=== PATIENT | female | born 1960 | race Caucasian/White ===

== ENCOUNTER 2019-07-16 08:39 | Day surgery (SDC) | payer BC ==
[~2019-07-16 08:39] MED LIST: Buffered Lidocaine 1% SYRIN* 1 ML/SYRINGE INTRADERM ONE; Famotidine IV* 10 MG/ML 2 ML (20 mg) IV ONE; Lactated Ringers 1000 ML Bag* 1,000 ML IV SCH; Metoclopramide IV* 5 MG/ML 2 ML VIAL IV SLOW PU ONE
[2019-07-16] MEDS ORDERED: Metoclopramide IV* 5 MG/ML 2 ML VIAL ONE (09:12)
[2019-07-16] MEDS ORDERED: Famotidine IV* 10 MG/ML 2 ML (20 mg) ONE (09:13)
[2019-07-16] MEDS ORDERED: Midazolam* 1 MG/ML 2 ML VIAL (2 MG) ONE (11:09)
[2019-07-16] MEDS ORDERED: fentaNYL* 50 MCG/ML 2 ML VIAL (100 MCG VIAL) ONE ×2 (11:09→14:18)
[2019-07-16] MEDS ORDERED: Bupivacaine 0.25% SDV PF* 10 ML VIAL INJ ONE ×2 (11:56→13:37)
[2019-07-16] MEDS ORDERED: Propofol* 10 MG/ML 20 ML BTL ONE (12:29)
[2019-07-16] MEDS ORDERED: Phenylephrine 40 MCG/ML SYRINGE ONE (12:29)
[2019-07-16] MEDS ORDERED: Ondansetron INJ* 2 MG/ML VIAL ONE ×2 (12:29→12:56)
[2019-07-16] MEDS ORDERED: Lidocaine 2% PF * 5 ML VIAL ONE (12:29)
[2019-07-16] MEDS ORDERED: DiMENhydriNATE IV* 50 MG/ML VIAL IV PUSH PRN (13:06)
[2019-07-16] MEDS ORDERED: Naloxone* 0.4 MG/ML 1 ML VIAL IV PRN (13:06)
[2019-07-16] MEDS: fentaNYL* 50 MCG/ML 2 ML VIAL (100 MCG VIAL) IV PRN ×2 (14:19→15:14)
[2019-07-16] MEDS ORDERED: HYDROcodone/ACETAMIN 5-325 MG* 1 TAB ONE (15:09)
[2019-07-16 16:42] VITALS: BP 122/58
--- NOTE | 2019-07-16 22:00 | OP ---
DATE OF OPERATION: 07/16/19 - [facility] DATE OF : 60 SURGEON: Ross Turner MD BUILDING ESTIMATOR: AMANDA Roper. An chemist assistant was needed for the entirety of the procedure to aid in positioning of the arm and retraction. ANESTHESIOLOGIST: Dr. Cobos. ANESTHESIA: General. PRE-OP DIAGNOSIS: Left severe peripheral ulnar nerve compression. POST-OP DIAGNOSIS: Left severe peripheral ulnar nerve compression. OPERATIVE PROCEDURE: 1. Left ulnar nerve decompression at the wrist. 2. Left ulnar nerve decompression of the elbow with anterior transmuscular transposition. INDICATIONS: Ms. Fine is a 59. The ulnar nerve compression is getting severe. Numbness and tingling is becoming constant. There is weakness in the hand. We talked about her treatment options and she had wanted to proceed with surgery. She understands the risks and benefits including the risk of persistent pain, wound problems, infection, hematoma, neuritis. She wishes to proceed. ESTIMATED BLOOD LOSS: 2 mL. COMPLICATIONS: None. FINDINGS: See above and below. DESCRIPTION OF PROCEDURE: Ms. Fine was seen in the preoperative holding area. The correct site, side, and procedures were identified. We came back to the operating room where the arm was prepped and draped in the usual fashion, and a time-out was performed. The arm was exsanguinated with the Esmarch and the tourniquet was inflated to 250 mmHg. I went ahead and made a longitudinal incision in the proximal palm, this was brought back across the wrist on the ulnar aspect in [place] type fashion. Full thickness flaps were raised off the fascia. The transverse carpal ligament was released. The release was taken down all the way through the palmar fascia distally and proximally. The distal antebrachial fascia was released as well. I then released the fascia overlying the roof of Guyon's canal. This was released through its entirety. Proximally I came and I put an [place] and I released all the fascia overlying the ulnar neurovascular bundle proximal many centimeters up into the distal forearm. Once I had completed the release all the way down through Guyon's canal, I could identify the 2 sensory branches to the motor nerve going down to the hand. I then gently retracted the ulnar nerve ulnarly with the Ragnell retractor and then I released the fascia overlying the hypothenar muscles. The muscles were then released. The subfascial layer was released as well all the way down around the hook of the hamate until the nerve was completely released. We did obtain cautery with the bipolar cautery. Everything was looking good at this point. The release was completed and so we irrigated out the wound and the skin was closed with 4-0 nylon suture. I then abducted and externally rotated the arm. A curvilinear incision was made over the cubital tunnel. Dissection was carried down. She has a larger arm and there was a lot of subcutaneous tissue, took the release all the way down to the fascia overlying the cubital tunnel. The nerve was released just proximal to the Berry's ligament. The release was carried out past the arcade of [place] and down distally. I released the fascia between the 2 heads of the FCU. The muscle was then split and the subfascial layer was released, again many centimeters distal to the elbow. At this point, the nerve had already subluxated up over the medial epicondyle. I then raised the full-thickness flap off the flexor pronator fascia. The medial intermuscular septum was excised. The leading edge of the FCU fascia together with some of the humeral head of the FCU was excised. I performed a neurolysis using a vessel loop for gentle retraction of the nerve. Stepcut fascial flap was raised off the flexor pronator fascia. The intermuscular septi were excised. The nerve was transposed up on to the muscular bed. The 2 fascial flaps were then sewn end- to-end to provide a loosening to keep the nerve in the transposed position. Hemostasis was then obtained with a Bovie. Everything was looking good. The nerve was nicely transposed. There was no kinking of the nerve. We irrigated out the wound. The subcutaneous tissue was reapproximated with 3-0 Vicryl suture, skin was closed with 3-0 Monocryl suture and Steri-Strips. 0.25% Marcaine was infiltrated all about the elbow and the wrist. Wounds were dressed with Xeroform, 4x4s, and ABD at the elbow, sterile Webril and then a long arm splint with a lateral buttress was applied and she was taken to the recovery room in stable condition. [id number]/[facility] #: [id number] ANABELLE
== END 2019-07-16 17:08 | disposition home or self-care (01) ==
LOC: OR 08:39
PROVIDERS: ATTEND Orthopaedic Surgery Hand Surgery
DX: G56.22 Lesion of ulnar nerve, left upper limb (principal); E11.9 Type 2 diabetes mellitus without complications; Z79.84 Long term (current) use of oral hypoglycemic drugs; I10 Essential (primary) hypertension; M19.90 Unspecified osteoarthritis, unspecified site; M06.9 Rheumatoid arthritis, unspecified; K21.9 Gastro-esophageal reflux disease without esophagitis; Z68.42 Body mass index [BMI] 45.0-49.9, adult
CPT/HCPCS: J2250; J2405; J2704; J2765; J3010; J3490